=== PATIENT | female | born 1960 | race Caucasian/White ===

== ENCOUNTER → 2017-09-06 14:28 | Outpatient (CLI) | payer BC, SELFPAY ==
--- NOTE | 2017-09-06 14:28 | DT_ITS ---
This patient was seen during an EMR downtime September 06, 2017 - September 13, 2017. This patient may have a combination of paper and electronic documentation or all paper documentation. All documentation is viewable within the e-chart portion of [employer] for each patient visit.
[2017-09-10 22:43] LABS: Hemoglobin 14.3 g/dl (12.0-15.0); Red Blood Count 4.76 M/mm3 (4.2-5.4); White Blood Count 6.9 K/mm3 (4.4-11.0)
[2017-09-10 22:44] LABS: Absolute Lymphocyte Count 1.99 X10^3/ul (0.83-4.51); Absolute Neutrophil Count 4.2 X10^3/uL (2.0-7.7); Basophil% 0.6 % (0-1); Eosinophils% 3.3 % (0-5); Hematocrit 42.7 % (37-47); Lymphocyte # 1.99 X10^3/ul (4.0); Lymphocyte % 28.8 % (19-41); Mean Corp Hgb Conc 33.5 g/gl (32-36); Mean Corpuscular Volume 89.7 fL (81-99); Mean Platelet Vol. 10.4 fl (6.2-12.0); Monocyte% 6.7 % (0-10); Neutrophil # 4.17 X10^3/uL (2.7-7.7); Neutrophil % 60.3 % (47-70); POSITIVE COUNT NO; POSITIVE DIFFERENTIAL NO; POSITIVE MORPHOLOGY NO; Platelet Count 236 K/mm3 (150-450); RBC Distribution Width CV 13.8 % (11.6-14.6)
[2017-09-10 22:45] LABS: Basophil# 0.04 X10^3/uL; Eosinophil# 0.23 X10^3/uL; Monocyte# 0.46 X10^3/uL
[2017-09-13 16:56] LABS: ALB/GLOB Ratio 1.3 RATIO (0.9-2.4); AST(SGOT) 30 U/L (15-37); Alanine Aminotransfer ALT/SGPT 40 U/L (13-56); Albumin, Serum 4.1 g/dL (3.2-5.0); Alkaline Phosphatase 79 U/L (45-117); Anion Gap 7 (5-15); BUN 10 mg/dL (7-18); BUN/Creat Ratio 15.4 RATIO (10-20); Calcium,Total 8.6 mg/dL (8.5-10.1); Chloride 108 mmol/L (98-107); Creatinine, Serum 0.65 mg/dL (0.55-1.02); EST Glomerular Filtration Rate 101 mL/min (>60); Est Glom Filt Rate - Afr Amer 122 mL/min (>60); Globulin 3.1 g/dL (2.2-4.2); Glucose 72 mg/dL (74-106); Potassium 4.1 mmol/L (3.5-5.1); Protein, Total 7.2 g/dL (6.4-8.2); Sodium Level 142 mmol/L (136-145)
== END ==
PROVIDERS: Family Provider Family Medicine; PCP Family Medicine; Visit Provider Internal Medicine Rheumatology
DX: M06.4 Inflammatory polyarthropathy (principal); M79.7 Fibromyalgia; M21.40 Flat foot [pes planus] (acquired), unspecified foot; I10 Essential (primary) hypertension; I25.10 Atherosclerotic heart disease of native coronary artery without angina pectoris; G43.909 Migraine, unspecified, not intractable, without status migrainosus; H40.9 Unspecified glaucoma; E78.5 Hyperlipidemia, unspecified; Z87.11 Personal history of peptic ulcer disease
CPT/HCPCS: 36415; 80053; 85025

== ENCOUNTER → 2018-01-31 11:34 | Outpatient (CLI) | payer BC, SELFPAY ==
[2018-01-31 13:50] LABS: Basophil# 0.02 X10^3/uL; Basophil% 0.4 % (0-1); Eosinophil# 0.16 X10^3/uL; Eosinophils% 3.2 % (0-5); Hematocrit 43.9 % (37-47); Hemoglobin 15.2 g/dl (12.0-15.0); Lymphocyte % 28.2 % (19-41); Mean Corp Hgb Conc 34.6 g/gl (32-36); Mean Corpuscular Hgb 30.8 pg (27.0-32.0); Mean Corpuscular Volume 88.9 fL (81-99); Mean Platelet Vol. 9.9 fl (6.2-12.0); Monocyte# 0.34 X10^3/uL; Monocyte% 6.9 % (0-10); Neutrophil # 3.03 X10^3/uL (2.7-7.7); Neutrophil % 61.1 % (47-70); Platelet Count 194 K/mm3 (150-450); RBC Distribution Width CV 13.5 % (11.6-14.6); RBC Distribution Width SD 43.5 fl (35.1-43.9); Red Blood Count 4.94 M/mm3 (4.2-5.4)
[2018-01-31 13:54] LABS: POSITIVE COUNT NO; POSITIVE DIFFERENTIAL NO; POSITIVE MORPHOLOGY NO
[2018-01-31 14:08] LABS: BUN 7 mg/dL (7-18); Creatinine, Serum 0.76 mg/dL (0.55-1.02); Glucose 140 mg/dL (74-106)
[2018-01-31 14:09] LABS: ALB/GLOB Ratio 1.1 RATIO (0.9-2.4); AST(SGOT) 34 U/L (15-37); Alanine Aminotransfer ALT/SGPT 60 U/L (13-56); Albumin, Serum 3.9 g/dL (3.2-5.0); Alkaline Phosphatase 85 U/L (45-117); Anion Gap 10 (5-15); BUN/Creat Ratio 9.2 RATIO (10-20); Calcium,Total 9.2 mg/dL (8.5-10.1); Chloride 104 mmol/L (98-107); EST Glomerular Filtration Rate 83 mL/min (>60); Est Glom Filt Rate - Afr Amer 101 mL/min (>60); Globulin 3.5 g/dL (2.2-4.2); Potassium 4.3 mmol/L (3.5-5.1); Protein, Total 7.4 g/dL (6.4-8.2); Sodium Level 141 mmol/L (136-145)
== END ==
PROVIDERS: Family Provider Family Medicine; PCP Family Medicine; Referring Provider Internal Medicine Rheumatology; Visit Provider Internal Medicine Rheumatology
DX: M06.4 Inflammatory polyarthropathy (principal); Z79.899 Other long term (current) drug therapy; M79.7 Fibromyalgia; M21.40 Flat foot [pes planus] (acquired), unspecified foot; I10 Essential (primary) hypertension; I25.10 Atherosclerotic heart disease of native coronary artery without angina pectoris; G43.909 Migraine, unspecified, not intractable, without status migrainosus; H40.9 Unspecified glaucoma; E78.5 Hyperlipidemia, unspecified; Z87.11 Personal history of peptic ulcer disease
CPT/HCPCS: 36415; 80053; 85025

== ENCOUNTER → 2018-07-14 10:08 | Outpatient (CLI) | payer OTHER, SELFPAY ==
[2018-07-14 12:26] LABS: Absolute Lymphocyte Count 1.42 X10^3/ul (0.83-4.51); Absolute Neutrophil Count 2.8 X10^3/uL (2.0-7.7); Basophil# 0.04 X10^3/uL; Basophil% 0.8 % (0-1); Eosinophil# 0.18 X10^3/uL; Eosinophils% 3.8 % (0-5); Hemoglobin 15.6 g/dl (12.0-15.0); Lymphocyte # 1.42 X10^3/ul (4.0); Lymphocyte % 29.6 % (19-41); Mean Corp Hgb Conc 34.7 g/gl (32-36); Mean Corpuscular Hgb 30.5 pg (27.0-32.0); Mean Corpuscular Volume 87.9 fL (81-99); Mean Platelet Vol. 10.2 fl (6.2-12.0); Monocyte# 0.39 X10^3/uL; Monocyte% 8.1 % (0-10); Neutrophil # 2.75 X10^3/uL (2.7-7.7); Neutrophil % 57.3 % (47-70); Platelet Count 224 K/mm3 (150-450); RBC Distribution Width CV 13.8 % (11.6-14.6); RBC Distribution Width SD 43.9 fl (35.1-43.9); Red Blood Count 5.12 M/mm3 (4.2-5.4); White Blood Count 4.8 K/mm3 (4.4-11.0)
[2018-07-14 12:30] LABS: POSITIVE COUNT NO; POSITIVE DIFFERENTIAL NO; POSITIVE MORPHOLOGY NO
[2018-07-14 12:59] LABS: ALB/GLOB Ratio 1.3 RATIO (0.9-2.4); AST(SGOT) 42 U/L (15-37); Alanine Aminotransfer ALT/SGPT 68 U/L (13-56); Albumin, Serum 4.2 g/dL (3.2-5.0); Alkaline Phosphatase 86 U/L (45-117); Anion Gap 8 (5-15); BUN 10 mg/dL (7-18); BUN/Creat Ratio 14.3 RATIO (10-20); Calcium,Total 9.4 mg/dL (8.5-10.1); Chloride 104 mmol/L (98-107); EST Glomerular Filtration Rate 92 mL/min (>60); Est Glom Filt Rate - Afr Amer 111 mL/min (>60); Globulin 3.3 g/dL (2.2-4.2); Glucose 113 mg/dL (74-106); Potassium 4.4 mmol/L (3.5-5.1); Protein, Total 7.5 g/dL (6.4-8.2); Sodium Level 140 mmol/L (136-145)
== END ==
LOC: MTLAB 10:11
PROVIDERS: Family Provider Family Medicine; PCP Family Medicine; Referring Provider Internal Medicine Rheumatology; Visit Provider Internal Medicine Rheumatology
DX: M06.4 Inflammatory polyarthropathy (principal); M21.40 Flat foot [pes planus] (acquired), unspecified foot; M79.7 Fibromyalgia; I25.10 Atherosclerotic heart disease of native coronary artery without angina pectoris; I10 Essential (primary) hypertension; E78.5 Hyperlipidemia, unspecified; G43.909 Migraine, unspecified, not intractable, without status migrainosus; H40.9 Unspecified glaucoma; Z79.899 Other long term (current) drug therapy; Z87.11 Personal history of peptic ulcer disease
CPT/HCPCS: 36415; 80053; 85025

== ENCOUNTER → 2018-12-27 10:40 | Outpatient (CLI) | payer OTHER, SELFPAY ==
[2018-12-27 12:27] LABS: Absolute Lymphocyte Count 1.61 X10^3/uL (0.83-4.51); Absolute Neutrophil Count 3.5 X10^3/uL (2.0-7.7); Basophil# 0.05 X10^3/uL; Basophil% 0.8 % (0-1); Eosinophils% 3.4 % (0-5); Hematocrit 46.1 % (37-47); Hemoglobin 15.9 g/dL (12.0-15.0); Lymphocyte # 1.61 X10^3/ul (4.0); Lymphocyte % 27.3 % (19-41); Mean Corp Hgb Conc 34.5 g/dL (32-36); Mean Corpuscular Hgb 30.6 pg (27.0-32.0); Mean Corpuscular Volume 88.7 fL (81-99); Mean Platelet Vol. 10.2 fl (6.2-12.0); Monocyte# 0.51 X10^3/uL; Monocyte% 8.7 % (0-10); NRBC Flagged by Analyzer 0 % (0-5); Neutrophil % 59.5 % (47-70); Platelet Count 213 K/mm3 (150-450); RBC Distribution Width CV 12.7 % (11.6-14.6); RBC Distribution Width SD 41.4 fl (35.1-43.9); White Blood Count 5.9 K/mm3 (4.4-11.0)
[2018-12-27 12:53] LABS: ALB/GLOB Ratio 1.2 RATIO (0.9-2.4); AST(SGOT) 42 U/L (15-37); Alanine Aminotransfer ALT/SGPT 55 U/L (13-56); Albumin, Serum 4.1 g/dL (3.2-5.0); Alkaline Phosphatase 87 U/L (45-117); Anion Gap 9 (5-15); BUN 12 mg/dL (7-18); BUN/Creat Ratio 10.3 RATIO (10-20); Calcium,Total 9.4 mg/dL (8.5-10.1); Chloride 101 mmol/L (98-107); Creatinine, Serum 1.16 mg/dL (0.55-1.02); EST Glomerular Filtration Rate 51 mL/min (>60); Est Glom Filt Rate - Afr Amer 62 mL/min (>60); Globulin 3.4 g/dL (2.2-4.2); Glucose 118 mg/dL (74-106); Potassium 4.2 mmol/L (3.5-5.1); Protein, Total 7.5 g/dL (6.4-8.2); Sodium Level 139 mmol/L (136-145)
== END ==
PROVIDERS: Family Provider Family Medicine; PCP Family Medicine; Referring Provider Internal Medicine Rheumatology; Visit Provider Internal Medicine Rheumatology
DX: M06.4 Inflammatory polyarthropathy (principal); Z79.899 Other long term (current) drug therapy; M79.7 Fibromyalgia; M21.40 Flat foot [pes planus] (acquired), unspecified foot; I10 Essential (primary) hypertension; I25.10 Atherosclerotic heart disease of native coronary artery without angina pectoris; G43.909 Migraine, unspecified, not intractable, without status migrainosus; H40.9 Unspecified glaucoma; E78.5 Hyperlipidemia, unspecified; Z87.11 Personal history of peptic ulcer disease
CPT/HCPCS: 36415; 80053; 85025

== ENCOUNTER → 2019-03-09 11:31 | Outpatient (CLI) | payer OTHER, SELFPAY ==
[2019-03-09 14:10] LABS: Absolute Lymphocyte Count 1.42 X10^3/uL (0.83-4.51); Absolute Neutrophil Count 3.3 X10^3/uL (2.0-7.7); Basophil# 0.05 X10^3/uL; Basophil% 0.9 % (0-1); Eosinophil# 0.16 X10^3/uL; Hematocrit 48.4 % (37-47); Hemoglobin 16.6 g/dL (12.0-15.0); Lymphocyte # 1.42 X10^3/ul (4.0); Lymphocyte % 26.8 % (19-41); Mean Corp Hgb Conc 34.3 g/dL (32-36); Mean Corpuscular Hgb 30.4 pg (27.0-32.0); Mean Corpuscular Volume 88.6 fL (81-99); Mean Platelet Vol. 10.1 fl (6.2-12.0); Monocyte# 0.39 X10^3/uL; Monocyte% 7.4 % (0-10); NRBC Flagged by Analyzer 0 % (0-5); Neutrophil # 3.26 X10^3/uL (2.7-7.7); Neutrophil % 61.5 % (47-70); Platelet Count 224 K/mm3 (150-450); RBC Distribution Width CV 13.2 % (11.6-14.6); RBC Distribution Width SD 42.7 fl (35.1-43.9); Red Blood Count 5.46 M/mm3 (4.2-5.4); White Blood Count 5.3 K/mm3 (4.4-11.0)
[2019-03-09 14:25] LABS: ALB/GLOB Ratio 1.4 RATIO (0.9-2.4); AST(SGOT) 33 U/L (15-37); Alanine Aminotransfer ALT/SGPT 54 U/L (13-56); Albumin, Serum 4.6 g/dL (3.2-5.0); Alkaline Phosphatase 80 U/L (45-117); Anion Gap 5 (5-15); BUN 13 mg/dL (7-18); Chloride 103 mmol/L (98-107); Creatinine, Serum 0.81 mg/dL (0.55-1.02); EST Glomerular Filtration Rate 77 mL/min (>60); Est Glom Filt Rate - Afr Amer 94 mL/min (>60); Globulin 3.4 g/dL (2.2-4.2); Glucose 94 mg/dL (74-106); Potassium 4.2 mmol/L (3.5-5.1); Sodium Level 138 mmol/L (136-145)
== END ==
PROVIDERS: Family Provider Family Medicine; PCP Family Medicine; Referring Provider Internal Medicine Rheumatology; Visit Provider Internal Medicine Rheumatology
DX: M06.4 Inflammatory polyarthropathy (principal); Z79.899 Other long term (current) drug therapy; M79.7 Fibromyalgia; M21.40 Flat foot [pes planus] (acquired), unspecified foot; I10 Essential (primary) hypertension; I25.10 Atherosclerotic heart disease of native coronary artery without angina pectoris; G43.909 Migraine, unspecified, not intractable, without status migrainosus; H40.9 Unspecified glaucoma; E78.5 Hyperlipidemia, unspecified; Z87.11 Personal history of peptic ulcer disease
CPT/HCPCS: 36415; 80053; 85025

== ENCOUNTER → 2019-05-25 11:47 | Outpatient (CLI) | payer OTHER, SELFPAY ==
[2019-05-25 14:24] LABS: Absolute Lymphocyte Count 1.34 X10^3/uL (0.83-4.51); Absolute Neutrophil Count 3.2 X10^3/uL (2.0-7.7); Basophil# 0.05 X10^3/uL; Eosinophil# 0.19 X10^3/uL; Eosinophils% 3.7 % (0-5); Hemoglobin 15.4 g/dL (12.0-15.0); Lymphocyte # 1.34 X10^3/ul (4.0); Lymphocyte % 26.3 % (19-41); Mean Corp Hgb Conc 33.5 g/dL (32-36); Mean Corpuscular Hgb 29.6 pg (27.0-32.0); Mean Corpuscular Volume 88.3 fL (81-99); Mean Platelet Vol. 10.5 fl (6.2-12.0); Monocyte% 5.9 % (0-10); NRBC Flagged by Analyzer 0 % (0-5); Neutrophil # 3.21 X10^3/uL (2.7-7.7); Neutrophil % 62.9 % (47-70); Platelet Count 219 K/mm3 (150-450); RBC Distribution Width CV 12.9 % (11.6-14.6); RBC Distribution Width SD 41.8 fl (35.1-43.9); Red Blood Count 5.21 M/mm3 (4.2-5.4); White Blood Count 5.1 K/mm3 (4.4-11.0)
[2019-05-25 14:35] LABS: ALB/GLOB Ratio 1.2 RATIO (0.9-2.4); AST(SGOT) 26 U/L (15-37); Alanine Aminotransfer ALT/SGPT 49 U/L (13-56); Albumin, Serum 4.2 g/dL (3.2-5.0); Alkaline Phosphatase 83 U/L (45-117); Anion Gap 7 (5-15); BUN 7 mg/dL (7-18); BUN/Creat Ratio 9.5 RATIO (10-20); Calcium,Total 9.4 mg/dL (8.5-10.1); Chloride 104 mmol/L (98-107); Creatinine, Serum 0.74 mg/dL (0.55-1.02); EST Glomerular Filtration Rate 87 mL/min (>60); Est Glom Filt Rate - Afr Amer 105 mL/min (>60); Globulin 3.5 g/dL (2.2-4.2); Glucose 120 mg/dL (74-106); Potassium 3.8 mmol/L (3.5-5.1); Protein, Total 7.7 g/dL (6.4-8.2); Sodium Level 140 mmol/L (136-145)
== END ==
PROVIDERS: PCP Family Medicine; Referring Provider Internal Medicine Rheumatology; Visit Provider Internal Medicine Rheumatology
DX: M06.4 Inflammatory polyarthropathy (principal); Z79.899 Other long term (current) drug therapy; M79.7 Fibromyalgia; M21.40 Flat foot [pes planus] (acquired), unspecified foot; K76.0 Fatty (change of) liver, not elsewhere classified; I10 Essential (primary) hypertension; I25.10 Atherosclerotic heart disease of native coronary artery without angina pectoris; G43.909 Migraine, unspecified, not intractable, without status migrainosus; H40.9 Unspecified glaucoma; E78.5 Hyperlipidemia, unspecified; Z87.11 Personal history of peptic ulcer disease
CPT/HCPCS: 36415; 80053; 85025

== ENCOUNTER → 2019-09-08 13:39 | Outpatient (CLI) | payer OTHER, SELFPAY ==
[2019-09-08 15:55] LABS: Absolute Lymphocyte Count 1.37 X10^3/uL (0.83-4.51); Absolute Neutrophil Count 2.8 X10^3/uL (2.0-7.7); Basophil# 0.04 X10^3/uL; Basophil% 0.8 % (0-1); Eosinophil# 0.13 X10^3/uL; Eosinophils% 2.8 % (0-5); Hematocrit 48.6 % (37-47); Hemoglobin 16.2 g/dL (12.0-15.0); Lymphocyte # 1.37 X10^3/ul (4.0); Mean Corp Hgb Conc 33.3 g/dL (32-36); Mean Corpuscular Hgb 30.3 pg (27.0-32.0); Mean Platelet Vol. 10.7 fl (6.2-12.0); Monocyte# 0.36 X10^3/uL; Monocyte% 7.6 % (0-10); NRBC Flagged by Analyzer 0 % (0-5); Neutrophil # 2.81 X10^3/uL (2.7-7.7); Neutrophil % 59.6 % (47-70); Platelet Count 238 K/mm3 (150-450); RBC Distribution Width CV 12.8 % (11.6-14.6); RBC Distribution Width SD 42.2 fl (35.1-43.9); Red Blood Count 5.34 M/mm3 (4.2-5.4); White Blood Count 4.7 K/mm3 (4.4-11.0)
[2019-09-08 16:38] LABS: ALB/GLOB Ratio 1.2 RATIO (0.9-2.4); AST(SGOT) 41 U/L (15-37); Alanine Aminotransfer ALT/SGPT 61 U/L (13-56); Albumin, Serum 4.3 g/dL (3.2-5.0); Alkaline Phosphatase 82 U/L (45-117); Anion Gap 7 (5-15); BUN 12 mg/dL (7-18); BUN/Creat Ratio 14.4 RATIO (10-20); Calcium,Total 9.9 mg/dL (8.5-10.1); Chloride 103 mmol/L (98-107); Creatinine, Serum 0.83 mg/dL (0.55-1.02); EST Glomerular Filtration Rate 75 mL/min (>60); Est Glom Filt Rate - Afr Amer 91 mL/min (>60); Globulin 3.5 g/dL (2.2-4.2); Glucose 100 mg/dL (74-106); Potassium 3.8 mmol/L (3.5-5.1); Protein, Total 7.8 g/dL (6.4-8.2); Sodium Level 139 mmol/L (136-145)
== END ==
PROVIDERS: PCP Family Medicine; Referring Provider Internal Medicine Rheumatology; Visit Provider Internal Medicine Rheumatology
DX: M06.4 Inflammatory polyarthropathy (principal); Z79.899 Other long term (current) drug therapy; M79.7 Fibromyalgia; M21.40 Flat foot [pes planus] (acquired), unspecified foot; K76.0 Fatty (change of) liver, not elsewhere classified; I10 Essential (primary) hypertension; I25.10 Atherosclerotic heart disease of native coronary artery without angina pectoris; G43.909 Migraine, unspecified, not intractable, without status migrainosus; H40.9 Unspecified glaucoma; E78.5 Hyperlipidemia, unspecified; Z87.11 Personal history of peptic ulcer disease
CPT/HCPCS: 36415; 80053; 85025

== ENCOUNTER → 2019-11-09 13:20 | Outpatient (CLI) | payer OTHER, SELFPAY ==
[2019-11-09 15:34] LABS: Absolute Lymphocyte Count 1.63 X10^3/uL (0.83-4.51); Absolute Neutrophil Count 3.1 X10^3/uL (2.0-7.7); Basophil# 0.06 X10^3/uL; Basophil% 1.1 % (0-1); Eosinophil# 0.17 X10^3/uL; Eosinophils% 3.1 % (0-5); Hematocrit 47.1 % (37-47); Lymphocyte # 1.63 X10^3/ul (4.0); Lymphocyte % 30.1 % (19-41); Mean Corpuscular Hgb 30.5 pg (27.0-32.0); Mean Corpuscular Volume 89.7 fL (81-99); Mean Platelet Vol. 10.3 fl (6.2-12.0); Monocyte# 0.41 X10^3/uL; Monocyte% 7.6 % (0-10); NRBC Flagged by Analyzer 0 % (0-5); Neutrophil # 3.12 X10^3/uL (2.7-7.7); Neutrophil % 57.7 % (47-70); Platelet Count 221 K/mm3 (150-450); RBC Distribution Width CV 13.1 % (11.6-14.6); RBC Distribution Width SD 42.7 fl (35.1-43.9); Red Blood Count 5.25 M/mm3 (4.2-5.4); White Blood Count 5.4 K/mm3 (4.4-11.0)
[2019-11-09 15:45] LABS: ALB/GLOB Ratio 1.2 RATIO (0.9-2.4); AST(SGOT) 30 U/L (15-37); Alanine Aminotransfer ALT/SGPT 52 U/L (13-56); Albumin, Serum 4.3 g/dL (3.2-5.0); Alkaline Phosphatase 81 U/L (45-117); Anion Gap 4 (5-15); BUN 11 mg/dL (7-18); BUN/Creat Ratio 13.1 RATIO (10-20); Calcium,Total 9.5 mg/dL (8.5-10.1); Chloride 104 mmol/L (98-107); Creatinine, Serum 0.84 mg/dL (0.55-1.02); EST Glomerular Filtration Rate 74 mL/min (>60); Est Glom Filt Rate - Afr Amer 90 mL/min (>60); Globulin 3.6 g/dL (2.2-4.2); Glucose 94 mg/dL (74-106); Potassium 4.3 mmol/L (3.5-5.1); Protein, Total 7.9 g/dL (6.4-8.2); Sodium Level 139 mmol/L (136-145)
== END ==
PROVIDERS: PCP Family Medicine; Referring Provider Internal Medicine Rheumatology; Visit Provider Internal Medicine Rheumatology
DX: M06.4 Inflammatory polyarthropathy (principal); Z79.899 Other long term (current) drug therapy; M79.7 Fibromyalgia; M21.40 Flat foot [pes planus] (acquired), unspecified foot; K76.0 Fatty (change of) liver, not elsewhere classified; I10 Essential (primary) hypertension; I25.10 Atherosclerotic heart disease of native coronary artery without angina pectoris; G43.909 Migraine, unspecified, not intractable, without status migrainosus; H40.9 Unspecified glaucoma; E78.5 Hyperlipidemia, unspecified; Z87.11 Personal history of peptic ulcer disease
CPT/HCPCS: 36415; 80053; 85025

== ENCOUNTER → 2020-01-01 13:57 | Outpatient (CLI) | payer OTHER, SELFPAY ==
[2020-01-01 18:06] LABS: Absolute Neutrophil Count 3.5 X10^3/uL (2.0-7.7); Basophil# 0.05 X10^3/uL; Basophil% 0.9 % (0-1); Eosinophil# 0.16 X10^3/uL; Eosinophils% 2.9 % (0-5); Hematocrit 47.5 % (37-47); Hemoglobin 16.1 g/dL (12.0-15.0); Lymphocyte % 27.5 % (19-41); Mean Corp Hgb Conc 33.9 g/dL (32-36); Mean Corpuscular Hgb 30.4 pg (27.0-32.0); Mean Corpuscular Volume 89.6 fL (81-99); Mean Platelet Vol. 10.5 fl (6.2-12.0); Monocyte# 0.27 X10^3/uL; NRBC Flagged by Analyzer 0 % (0-5); Neutrophil # 3.46 X10^3/uL (2.7-7.7); Neutrophil % 63.5 % (47-70); Platelet Count 217 K/mm3 (150-450); RBC Distribution Width CV 12.4 % (11.6-14.6); RBC Distribution Width SD 40.3 fl (35.1-43.9); White Blood Count 5.5 K/mm3 (4.4-11.0)
[2020-01-01 18:25] LABS: ALB/GLOB Ratio 1.2 RATIO (0.9-2.4); AST(SGOT) 30 U/L (15-37); Alanine Aminotransfer ALT/SGPT 46 U/L (13-56); Albumin, Serum 4.3 g/dL (3.2-5.0); Alkaline Phosphatase 91 U/L (45-117); Anion Gap 6 (5-15); BUN 11 mg/dL (7-18); BUN/Creat Ratio 13.8 RATIO (10-20); Calcium,Total 9.6 mg/dL (8.5-10.1); Chloride 104 mmol/L (98-107); EST Glomerular Filtration Rate 79 mL/min (>60); Est Glom Filt Rate - Afr Amer 95 mL/min (>60); Globulin 3.7 g/dL (2.2-4.2); Glucose 113 mg/dL (74-106); Potassium 3.8 mmol/L (3.5-5.1); Sodium Level 136 mmol/L (136-145)
== END ==
PROVIDERS: PCP Family Medicine; Referring Provider Internal Medicine Rheumatology; Visit Provider Internal Medicine Rheumatology
DX: M06.4 Inflammatory polyarthropathy (principal); Z79.899 Other long term (current) drug therapy; M79.7 Fibromyalgia; M21.40 Flat foot [pes planus] (acquired), unspecified foot; K76.0 Fatty (change of) liver, not elsewhere classified; I10 Essential (primary) hypertension; I25.10 Atherosclerotic heart disease of native coronary artery without angina pectoris; G43.909 Migraine, unspecified, not intractable, without status migrainosus; H40.9 Unspecified glaucoma; E78.5 Hyperlipidemia, unspecified; Z87.11 Personal history of peptic ulcer disease
CPT/HCPCS: 36415; 80053; 85025

== ENCOUNTER → 2020-04-02 14:41 | Outpatient (CLI) | payer OTHER, SELFPAY ==
[2020-04-02 18:08] LABS: Absolute Lymphocyte Count 1.52 X10^3/uL (0.83-4.51); Absolute Neutrophil Count 3.6 X10^3/uL (2.0-7.7); Basophil# 0.06 X10^3/uL; Basophil% 1.1 % (0-1); Eosinophil# 0.19 X10^3/uL; Eosinophils% 3.3 % (0-5); Hematocrit 46.4 % (37-47); Hemoglobin 15.6 g/dL (12.0-15.0); Lymphocyte # 1.52 X10^3/ul (4.0); Lymphocyte % 26.6 % (19-41); Mean Corp Hgb Conc 33.6 g/dL (32-36); Mean Corpuscular Hgb 31.1 pg (27.0-32.0); Mean Corpuscular Volume 92.4 fL (81-99); Mean Platelet Vol. 10.3 fl (6.2-12.0); Monocyte# 0.37 X10^3/uL; Monocyte% 6.5 % (0-10); NRBC Flagged by Analyzer 0 % (0-5); Neutrophil # 3.55 X10^3/uL (2.7-7.7); Neutrophil % 62.1 % (47-70); Platelet Count 251 K/mm3 (150-450); RBC Distribution Width CV 13.8 % (11.6-14.6); RBC Distribution Width SD 45.7 fl (35.1-43.9); Red Blood Count 5.02 M/mm3 (4.2-5.4); White Blood Count 5.7 K/mm3 (4.4-11.0)
[2020-04-02 18:28] LABS: ALB/GLOB Ratio 1.3 RATIO (0.9-2.4); AST(SGOT) 51 U/L (15-37); Alanine Aminotransfer ALT/SGPT 74 U/L (13-56); Albumin, Serum 4.3 g/dL (3.2-5.0); Alkaline Phosphatase 88 U/L (45-117); Anion Gap 5 (5-15); BUN 9 mg/dL (7-18); BUN/Creat Ratio 12.2 RATIO (10-20); Calcium,Total 9.1 mg/dL (8.5-10.1); Chloride 104 mmol/L (98-107); Creatinine, Serum 0.74 mg/dL (0.55-1.02); EST Glomerular Filtration Rate 86 mL/min (>60); Est Glom Filt Rate - Afr Amer 104 mL/min (>60); Globulin 3.4 g/dL (2.2-4.2); Glucose 91 mg/dL (74-106); Potassium 4.3 mmol/L (3.5-5.1); Protein, Total 7.7 g/dL (6.4-8.2); Sodium Level 138 mmol/L (136-145)
== END ==
LOC: MTLAB 14:43
PROVIDERS: PCP Family Medicine; Referring Provider Internal Medicine Rheumatology; Visit Provider Internal Medicine Rheumatology
DX: M06.4 Inflammatory polyarthropathy (principal); Z79.899 Other long term (current) drug therapy; M79.7 Fibromyalgia; M21.40 Flat foot [pes planus] (acquired), unspecified foot; K76.0 Fatty (change of) liver, not elsewhere classified; I10 Essential (primary) hypertension; I25.10 Atherosclerotic heart disease of native coronary artery without angina pectoris; G43.909 Migraine, unspecified, not intractable, without status migrainosus; H40.9 Unspecified glaucoma; E78.5 Hyperlipidemia, unspecified; Z87.11 Personal history of peptic ulcer disease
CPT/HCPCS: 36415; 80053; 85025

== ENCOUNTER → 2020-06-13 16:06 | Outpatient (CLI) | payer OTHER, SELFPAY ==
[2020-06-13 17:26] LABS: Absolute Lymphocyte Count 1.85 X10^3/uL (0.83-4.51); Absolute Neutrophil Count 3.6 X10^3/uL (2.0-7.7); Basophil# 0.06 X10^3/uL; Eosinophil# 0.17 X10^3/uL; Eosinophils% 2.8 % (0-5); Hematocrit 47.4 % (37-47); Hemoglobin 16.2 g/dL (12.0-15.0); Lymphocyte # 1.85 X10^3/ul (4.0); Lymphocyte % 30.1 % (19-41); Mean Corp Hgb Conc 34.2 g/dL (32-36); Mean Corpuscular Volume 90.6 fL (81-99); Mean Platelet Vol. 10.2 fl (6.2-12.0); Monocyte# 0.45 X10^3/uL; Monocyte% 7.3 % (0-10); NRBC Flagged by Analyzer 0 % (0-5); Neutrophil % 58.5 % (47-70); Platelet Count 285 K/mm3 (150-450); RBC Distribution Width CV 12.3 % (11.6-14.6); RBC Distribution Width SD 40.6 fl (35.1-43.9); Red Blood Count 5.23 M/mm3 (4.2-5.4); White Blood Count 6.2 K/mm3 (4.4-11.0)
[2020-06-13 18:09] LABS: ALB/GLOB Ratio 1.3 RATIO (0.9-2.4); AST(SGOT) 60 U/L (15-37); Alanine Aminotransfer ALT/SGPT 85 U/L (13-56); Albumin, Serum 4.4 g/dL (3.2-5.0); Alkaline Phosphatase 93 U/L (45-117); Anion Gap 5 (5-15); BUN 10 mg/dL (7-18); BUN/Creat Ratio 10.8 RATIO (10-20); Calcium,Total 9.7 mg/dL (8.5-10.1); Chloride 100 mmol/L (98-107); Creatinine, Serum 0.93 mg/dL (0.55-1.02); EST Glomerular Filtration Rate 66 mL/min (>60); Est Glom Filt Rate - Afr Amer 80 mL/min (>60); Globulin 3.4 g/dL (2.2-4.2); Glucose 92 mg/dL (74-106); Potassium 4.1 mmol/L (3.5-5.1); Protein, Total 7.8 g/dL (6.4-8.2); Sodium Level 137 mmol/L (136-145)
== END ==
PROVIDERS: PCP Family Medicine; Referring Provider Internal Medicine Rheumatology; Visit Provider Internal Medicine Rheumatology
DX: M06.4 Inflammatory polyarthropathy (principal); Z79.899 Other long term (current) drug therapy; M79.7 Fibromyalgia; M21.40 Flat foot [pes planus] (acquired), unspecified foot; K76.0 Fatty (change of) liver, not elsewhere classified; I10 Essential (primary) hypertension; I25.10 Atherosclerotic heart disease of native coronary artery without angina pectoris; G43.909 Migraine, unspecified, not intractable, without status migrainosus; H40.9 Unspecified glaucoma; E78.5 Hyperlipidemia, unspecified; Z87.11 Personal history of peptic ulcer disease
CPT/HCPCS: 36415; 80053; 85025

== ENCOUNTER → 2020-09-09 13:23 | Outpatient (CLI) | payer OTHER, SELFPAY ==
[2020-09-09 15:41] LABS: Absolute Lymphocyte Count 1.46 X10^3/uL (0.83-4.51); Absolute Neutrophil Count 2.6 X10^3/uL (2.0-7.7); Basophil# 0.04 X10^3/uL; Basophil% 0.9 % (0-1); Eosinophil# 0.12 X10^3/uL; Eosinophils% 2.6 % (0-5); Hematocrit 45.9 % (37-47); Hemoglobin 15.6 g/dL (12.0-15.0); Lymphocyte # 1.46 X10^3/ul (0.83-4.51); Lymphocyte % 31.8 % (19-41); Mean Corpuscular Hgb 30.3 pg (27.0-32.0); Mean Corpuscular Volume 89.1 fL (81-99); Mean Platelet Vol. 10.8 fl (6.2-12.0); Monocyte# 0.32 X10^3/uL; NRBC Flagged by Analyzer 0 % (0-5); Neutrophil # 2.63 X10^3/uL (2.7-7.7); Neutrophil % 57.3 % (47-70); Platelet Count 207 K/mm3 (150-450); RBC Distribution Width SD 42.1 fl (35.1-43.9); Red Blood Count 5.15 M/mm3 (4.2-5.4); White Blood Count 4.6 K/mm3 (4.4-11.0)
[2020-09-09 16:09] LABS: ALB/GLOB Ratio 1.3 RATIO (0.9-2.4); AST(SGOT) 35 U/L (15-37); Alanine Aminotransfer ALT/SGPT 60 U/L (13-56); Albumin, Serum 4.3 g/dL (3.2-5.0); Alkaline Phosphatase 86 U/L (45-117); Anion Gap 7 (5-15); BUN 11 mg/dL (7-18); BUN/Creat Ratio 13.9 RATIO (10-20); Calcium,Total 9.6 mg/dL (8.5-10.1); Chloride 103 mmol/L (98-107); Creatinine, Serum 0.79 mg/dL (0.55-1.02); EST Glomerular Filtration Rate 80 mL/min (>60); Est Glom Filt Rate - Afr Amer 96 mL/min (>60); Globulin 3.4 g/dL (2.2-4.2); Glucose 88 mg/dL (74-106); Potassium 4.5 mmol/L (3.5-5.1); Protein, Total 7.7 g/dL (6.4-8.2); Sodium Level 137 mmol/L (136-145)
== END ==
PROVIDERS: PCP Family Medicine; Referring Provider Internal Medicine Rheumatology; Visit Provider Internal Medicine Rheumatology
DX: M06.4 Inflammatory polyarthropathy (principal); Z79.899 Other long term (current) drug therapy; M79.7 Fibromyalgia; M21.40 Flat foot [pes planus] (acquired), unspecified foot; K76.0 Fatty (change of) liver, not elsewhere classified; I10 Essential (primary) hypertension; I25.10 Atherosclerotic heart disease of native coronary artery without angina pectoris; G43.909 Migraine, unspecified, not intractable, without status migrainosus; H40.9 Unspecified glaucoma; E78.5 Hyperlipidemia, unspecified; Z87.11 Personal history of peptic ulcer disease
CPT/HCPCS: 36415; 80053; 85025

== ENCOUNTER → 2020-12-12 16:36 | Outpatient (CLI) | payer OTHER, SELFPAY ==
[2020-12-12 18:26] LABS: Absolute Lymphocyte Count 1.74 X10^3/uL (0.83-4.51); Absolute Neutrophil Count 3.5 X10^3/uL (2.0-7.7); Basophil# 0.03 X10^3/uL; Basophil% 0.5 % (0-1); Eosinophil# 0.14 X10^3/uL; Eosinophils% 2.4 % (0-5); Hematocrit 45.4 % (37-47); Hemoglobin 15.2 g/dL (12.0-15.0); Lymphocyte # 1.74 X10^3/ul (0.83-4.51); Lymphocyte % 30.4 % (19-41); Mean Corp Hgb Conc 33.5 g/dL (32-36); Mean Corpuscular Volume 89.7 fL (81-99); Mean Platelet Vol. 10.2 fl (6.2-12.0); Monocyte# 0.36 X10^3/uL; Monocyte% 6.3 % (0-10); NRBC Flagged by Analyzer 0 % (0-5); Neutrophil # 3.45 X10^3/uL (2.7-7.7); Neutrophil % 60.2 % (47-70); Platelet Count 240 K/mm3 (150-450); RBC Distribution Width CV 13.1 % (11.6-14.6); RBC Distribution Width SD 42.7 fl (35.1-43.9); Red Blood Count 5.06 M/mm3 (4.2-5.4); White Blood Count 5.7 K/mm3 (4.4-11.0)
[2020-12-12 19:01] LABS: ALB/GLOB Ratio 1.1 RATIO (0.9-2.4); AST(SGOT) 23 U/L (15-37); Alanine Aminotransfer ALT/SGPT 36 U/L (13-56); Albumin, Serum 3.9 g/dL (3.2-5.0); Alkaline Phosphatase 76 U/L (45-117); Anion Gap 4 (5-15); BUN 13 mg/dL (7-18); BUN/Creat Ratio 19.6 RATIO (10-20); Calcium,Total 9.2 mg/dL (8.5-10.1); Chloride 104 mmol/L (98-107); Creatinine, Serum 0.66 mg/dL (0.55-1.02); EST Glomerular Filtration Rate 97 mL/min (>60); Est Glom Filt Rate - Afr Amer 118 mL/min (>60); Globulin 3.6 g/dL (2.2-4.2); Glucose 110 mg/dL (74-106); Potassium 4.1 mmol/L (3.5-5.1); Protein, Total 7.5 g/dL (6.4-8.2); Sodium Level 139 mmol/L (136-145)
== END ==
PROVIDERS: PCP Family Medicine; Referring Provider Internal Medicine Rheumatology; Visit Provider Internal Medicine Rheumatology
DX: M06.4 Inflammatory polyarthropathy (principal); Z79.899 Other long term (current) drug therapy; M79.7 Fibromyalgia; M21.40 Flat foot [pes planus] (acquired), unspecified foot; K76.0 Fatty (change of) liver, not elsewhere classified; I10 Essential (primary) hypertension; I25.10 Atherosclerotic heart disease of native coronary artery without angina pectoris; G43.909 Migraine, unspecified, not intractable, without status migrainosus; H40.9 Unspecified glaucoma; E78.5 Hyperlipidemia, unspecified; Z87.11 Personal history of peptic ulcer disease
CPT/HCPCS: 36415; 80053; 85025

== ENCOUNTER 2021-06-27 13:57 | Outpatient (CLI) | payer OTHER, SELFPAY ==
[2021-06-27 15:34] LABS: Absolute Lymphocyte Count 1.63 X10^3/uL (0.83-4.51); Absolute Neutrophil Count 6.6 X10^3/uL (2.0-7.7); Basophil# 0.06 X10^3/uL; Basophil% 0.7 % (0-1); Eosinophil# 0.13 X10^3/uL; Eosinophils% 1.4 % (0-5); Hematocrit 48.2 % (37-47); Hemoglobin 16.6 g/dL (12.0-15.0); Lymphocyte # 1.63 X10^3/ul (0.83-4.51); Lymphocyte % 17.9 % (19-41); Mean Corp Hgb Conc 34.4 g/dL (32-36); Mean Corpuscular Hgb 30.1 pg (27.0-32.0); Mean Corpuscular Volume 87.5 fL (81-99); Mean Platelet Vol. 10.7 fl (6.2-12.0); Monocyte# 0.64 X10^3/uL; NRBC Flagged by Analyzer 0 % (0-5); Neutrophil # 6.61 X10^3/uL (2.7-7.7); Neutrophil % 72.8 % (47-70); POSITIVE COUNT YES; Platelet Count 213 K/mm3 (150-450); RBC Distribution Width SD 41.8 fl (35.1-43.9); Red Blood Count 5.51 M/mm3 (4.2-5.4); White Blood Count 9.1 K/mm3 (4.4-11.0)
[2021-06-27 15:45] LABS: Differential Indicated SCAN CRITERIA MET
[2021-06-27 15:46] LABS: ALB/GLOB Ratio 1.2 RATIO (0.9-2.4); AST(SGOT) 41 U/L (15-37); Alanine Aminotransfer ALT/SGPT 62 U/L (13-56); Albumin, Serum 4.2 g/dL (3.2-5.0); Alkaline Phosphatase 79 U/L (45-117); Anion Gap 7 (5-15); BUN 12 mg/dL (7-18); Calcium,Total 9.6 mg/dL (8.5-10.1); Chloride 103 mmol/L (98-107); Creatinine, Serum 0.86 mg/dL (0.55-1.02); EST Glomerular Filtration Rate 72 mL/min (>60); Est Glom Filt Rate - Afr Amer 87 mL/min (>60); Globulin 3.6 g/dL (2.2-4.2); Glucose 97 mg/dL (74-106); Protein, Total 7.8 g/dL (6.4-8.2); Sodium Level 136 mmol/L (136-145)
[2021-06-27 16:24] LABS: Differential Comment SCANNED
== END 2021-06-27 23:59 | disposition home or self-care (01) ==
PROVIDERS: PCP Family Medicine; Referring Provider Internal Medicine Rheumatology; Visit Provider Internal Medicine Rheumatology
DX: M06.4 Inflammatory polyarthropathy (principal); Z79.899 Other long term (current) drug therapy; M79.7 Fibromyalgia; M21.40 Flat foot [pes planus] (acquired), unspecified foot; K76.0 Fatty (change of) liver, not elsewhere classified; I10 Essential (primary) hypertension; I25.10 Atherosclerotic heart disease of native coronary artery without angina pectoris; G43.909 Migraine, unspecified, not intractable, without status migrainosus; H40.9 Unspecified glaucoma; E78.5 Hyperlipidemia, unspecified; Z87.11 Personal history of peptic ulcer disease
CPT/HCPCS: 36415; 80053; 85025

== ENCOUNTER → 2021-10-14 | Outpatient (CLI) | payer OTHER, SELFPAY ==
[2021-10-14 17:59] LABS: Absolute Lymphocyte Count 1.83 X10^3/uL (0.83-4.51); Absolute Neutrophil Count 4.7 X10^3/uL (2.0-7.7); Basophil# 0.06 X10^3/uL; Basophil% 0.8 % (0-1); Eosinophils% 1.4 % (0-5); Hemoglobin 16.8 g/dL (12.0-15.0); Lymphocyte # 1.83 X10^3/ul (0.83-4.51); Lymphocyte % 24.9 % (19-41); Mean Corpuscular Hgb 30.7 pg (27.0-32.0); Mean Corpuscular Volume 87.6 fL (81-99); Mean Platelet Vol. 10.1 fl (6.2-12.0); Monocyte# 0.58 X10^3/uL; Monocyte% 7.9 % (0-10); NRBC Flagged by Analyzer 0 % (0-5); Neutrophil # 4.74 X10^3/uL (2.7-7.7); Neutrophil % 64.6 % (47-70); Platelet Count 271 K/mm3 (150-450); RBC Distribution Width CV 12.9 % (11.6-14.6); RBC Distribution Width SD 41.6 fl (35.1-43.9); Red Blood Count 5.48 M/mm3 (4.2-5.4); White Blood Count 7.3 K/mm3 (4.4-11.0)
[2021-10-14 18:37] LABS: ALB/GLOB Ratio 1.1 RATIO (0.9-2.4); AST(SGOT) 62 U/L (15-37); Alanine Aminotransfer ALT/SGPT 89 U/L (13-56); Albumin, Serum 4.1 g/dL (3.2-5.0); Alkaline Phosphatase 84 U/L (45-117); Anion Gap 6 (5-15); BUN 15 mg/dL (7-18); BUN/Creat Ratio 16.3 RATIO (10-20); Calcium,Total 9.4 mg/dL (8.5-10.1); Chloride 101 mmol/L (98-107); Creatinine, Serum 0.92 mg/dL (0.55-1.02); EST Glomerular Filtration Rate 67 mL/min (>60); Est Glom Filt Rate - Afr Amer 81 mL/min (>60); Globulin 3.7 g/dL (2.2-4.2); Glucose 109 mg/dL (74-106); Protein, Total 7.8 g/dL (6.4-8.2); Sodium Level 135 mmol/L (136-145)
== END | disposition home or self-care (01) ==
LOC: MTLAB 15:49
PROVIDERS: PCP Family Medicine; Referring Provider Internal Medicine Rheumatology; Visit Provider Internal Medicine Rheumatology
DX: M06.4 Inflammatory polyarthropathy (principal); Z79.899 Other long term (current) drug therapy; M79.7 Fibromyalgia; M21.40 Flat foot [pes planus] (acquired), unspecified foot; K76.0 Fatty (change of) liver, not elsewhere classified; I10 Essential (primary) hypertension; I25.10 Atherosclerotic heart disease of native coronary artery without angina pectoris; G43.909 Migraine, unspecified, not intractable, without status migrainosus; H40.9 Unspecified glaucoma; E78.5 Hyperlipidemia, unspecified; Z87.11 Personal history of peptic ulcer disease
CPT/HCPCS: 36415; 80053; 85025

== ENCOUNTER → 2022-02-17 | Outpatient (CLI) | payer OTHER, SELFPAY ==
[2022-02-17 15:20] LABS: Absolute Neutrophil Count 4.7 X10^3/uL (2.0-7.7); Basophil# 0.05 X10^3/uL; Basophil% 0.7 % (0-1); Eosinophil# 0.14 X10^3/uL; Hematocrit 49.1 % (37-47); Hemoglobin 16.5 g/dL (12.0-15.0); Lymphocyte % 24.3 % (19-41); Mean Corp Hgb Conc 33.6 g/dL (32-36); Mean Corpuscular Hgb 30.1 pg (27.0-32.0); Mean Corpuscular Volume 89.4 fL (81-99); Mean Platelet Vol. 10.1 fl (6.2-12.0); Monocyte# 0.37 X10^3/uL; Monocyte% 5.3 % (0-10); NRBC Flagged by Analyzer 0 % (0-5); Neutrophil % 67.3 % (47-70); Platelet Count 266 K/mm3 (150-450); RBC Distribution Width CV 12.8 % (11.6-14.6); Red Blood Count 5.49 M/mm3 (4.2-5.4)
[2022-02-17 16:42] LABS: ALB/GLOB Ratio 1.2 RATIO (0.9-2.4); AST(SGOT) 76 U/L (15-37); Alanine Aminotransfer ALT/SGPT 96 U/L (13-56); Albumin, Serum 4.2 g/dL (3.2-5.0); Alkaline Phosphatase 88 U/L (45-117); Anion Gap 8 (5-15); BUN 10 mg/dL (7-18); BUN/Creat Ratio 12.7 RATIO (10-20); Calcium,Total 9.6 mg/dL (8.5-10.1); Chloride 100 mmol/L (98-107); Creatinine, Serum 0.79 mg/dL (0.55-1.02); EST Glomerular Filtration Rate 80 mL/min (>60); Est Glom Filt Rate - Afr Amer 96 mL/min (>60); Globulin 3.6 g/dL (2.2-4.2); Glucose 101 mg/dL (74-106); Potassium 4.4 mmol/L (3.5-5.1); Protein, Total 7.8 g/dL (6.4-8.2); Sodium Level 137 mmol/L (136-145)
== END | disposition home or self-care (01) ==
LOC: MTLAB 13:55
PROVIDERS: PCP Family Medicine; Referring Provider Internal Medicine Rheumatology; Visit Provider Internal Medicine Rheumatology
DX: M06.4 Inflammatory polyarthropathy (principal); Z79.899 Other long term (current) drug therapy; M79.7 Fibromyalgia; M21.40 Flat foot [pes planus] (acquired), unspecified foot; K76.0 Fatty (change of) liver, not elsewhere classified; I10 Essential (primary) hypertension; I25.10 Atherosclerotic heart disease of native coronary artery without angina pectoris; G43.909 Migraine, unspecified, not intractable, without status migrainosus; H40.9 Unspecified glaucoma; E78.5 Hyperlipidemia, unspecified; Z87.11 Personal history of peptic ulcer disease
CPT/HCPCS: 36415; 80053; 85025

== ENCOUNTER → 2022-10-19 | Outpatient (CLI) | payer OTHER, SELFPAY ==
[2022-10-19 17:31] LABS: Absolute Neutrophil Count 3.4 X10^3/uL (2.0-7.7); Basophil# 0.06 X10^3/uL; Eosinophil# 0.17 X10^3/uL; Hematocrit 48.3 % (37-47); Hemoglobin 16.3 g/dL (12.0-15.0); Lymphocyte % 27.8 % (19-41); Mean Corp Hgb Conc 33.7 g/dL (32-36); Mean Corpuscular Hgb 30.2 pg (27.0-32.0); Mean Corpuscular Volume 89.4 fL (81-99); Mean Platelet Vol. 10.2 fl (6.2-12.0); Monocyte# 0.47 X10^3/uL; Monocyte% 8.2 % (0-10); NRBC Flagged by Analyzer 0 % (0-5); Neutrophil # 3.43 X10^3/uL (2.7-7.7); Neutrophil % 59.7 % (47-70); Platelet Count 236 K/mm3 (150-450); RBC Distribution Width SD 42.2 fl (35.1-43.9); White Blood Count 5.8 K/mm3 (4.4-11.0)
[2022-10-19 18:00] LABS: ALB/GLOB Ratio 1.1 RATIO (0.9-2.4); AST(SGOT) 55 U/L (15-37); Alanine Aminotransfer ALT/SGPT 75 U/L (13-56); Alkaline Phosphatase 97 U/L (45-117); Anion Gap 6 (5-15); BUN 7 mg/dL (7-18); BUN/Creat Ratio 8.5 RATIO (10-20); Calcium,Total 9.7 mg/dL (8.5-10.1); Chloride 106 mmol/L (98-107); Creatinine, Serum 0.82 mg/dL (0.55-1.02); EST Glomerular Filtration Rate 75 mL/min (>60); Est Glom Filt Rate - Afr Amer 91 mL/min (>60); Globulin 3.7 g/dL (2.2-4.2); Glucose 105 mg/dL (74-106); Protein, Total 7.7 g/dL (6.4-8.2); Sodium Level 139 mmol/L (136-145)
== END | disposition home or self-care (01) ==
LOC: MTLAB 15:28
PROVIDERS: Referring Provider Internal Medicine Rheumatology; Visit Provider Internal Medicine Rheumatology
DX: M06.4 Inflammatory polyarthropathy (principal); Z79.899 Other long term (current) drug therapy; M79.7 Fibromyalgia; M21.40 Flat foot [pes planus] (acquired), unspecified foot; K76.0 Fatty (change of) liver, not elsewhere classified; I10 Essential (primary) hypertension; I25.10 Atherosclerotic heart disease of native coronary artery without angina pectoris; G43.909 Migraine, unspecified, not intractable, without status migrainosus; H40.9 Unspecified glaucoma; E78.5 Hyperlipidemia, unspecified; Z87.11 Personal history of peptic ulcer disease
CPT/HCPCS: 36415; 80053; 85025

== ENCOUNTER → 2023-04-26 | Outpatient (CLI) | payer OTHER, SELFPAY ==
--- OUTSIDE RECORDS SUMMARY | 2023-04-26 13:32 | XMS RPT_ITS | CCD ---
Author Name Unknown Address [address] [place] [address] Organization [facility] Care Team Providers Care Banquet Houseperson Name Role Phone Andrea Frey Unavailable Unavailable Edna Villagomez Unavailable Unavailable PROVIDER, UNKNOWN Unavailable Unavailable Teo Wright Unavailable Unavailable Edna Villagomez Unavailable Unavailable PROVIDER, UNKNOWN Unavailable Unavailable Edna Villagomez Unavailable Unavailable PROVIDER, UNKNOWN Unavailable Unavailable RICHY BAY Unavailable Unavailable DRAKE STARKEY Referring Unavailabl e DRAKE STARKEY Referring Unavailabl NATHAN Davis Referring Unavailabl e Edna Villagomez Primary Care Provider Edna Villagomez MD Primary Care Provider Allergies Allergy Classification Reported Allergen(s) Allergy Type Date of Onset Reaction(s) Facility (1 source) levoFLOXacin; Translations: [LEVOFLOXACIN] Drug Allergy 4 [facility] Rep[facility] (1 source) Sulfonamides (Antibiotic); Translations: [SULFA (SULFONAMIDE ANTIBIOTICS)] Propensity to adverse reactions to drug (disorder) 1 [facility] Repository (1 source) Azithromycin Drug Allergy 7 [place], [place] (1 source) Doxycycline Drug Allergy 8 Other (See Comments) [place], [place] (1 source) levoFLOXacin Drug Allergy 6 [place], [place] (1 source) Sulfonamides (Antibiotic) Propensity to adverse reactions to drug 6 [place] (1 source) SUMAtriptan Drug Allergy 6 [place] (1 source) Amoxicillin-Pot Clavulanate Propensity to adverse reactions to drug 7 Diarrhea [facility]- [place], [place] Medications Current Medications Medication Drug Class(es) Dates Sig (Normalized) Sig (Original) 200 actuat albuterol 0.09 mg/actuat dry powder inhaler (1 source) beta2-Adrenergic Agonist Start: 12-29-19 18 take 2 puff(s) by inhalation every six hours as needed for wheezing albuterol sulfate (PROAIR RESPICLICK) 108 (90 Base) MCG/ACT aerosol powder inhalation Inhale 2 puffs into the lungs every 6 hours as needed for Wheezing or Shortness of Breath 1 Inhaler 11 12/28/2017 Active aspirin 81 mg oral tablet (1 source) Platelet Aggregation Inhibitor, Nonsteroidal Anti-inflammatory Drug take 1 tablet by mouth once daily aspirin 81 MG tablet Indications: 2 tabs daily Take 81 mg by mouth daily 0 Active bimatoprost 0.1 mg/ml ophthalmic solution (1 source) Prostaglandin Analog Start: 03-09-20 17 take 1 drop(s) into the eye(s) once daily at bedtime bimatoprost (LUMIGAN) 0.01 % SOLN ophthalmic drops Use 1 Drop in both eyes daily at bedtime. 0 03/09/2017 Active Cholecalciferol (1 source) Vitamin D Cholecalciferol (VITAMIN D-3 PO) Take by mouth daily 0 Active DULoxetine 60 mg delayed release oral capsule (1 source) Serotonin and Norepinephrine Reuptake Inhibitor Start: 09-13-19 19 DULoxetine (CYMBALTA) 60 MG extended release capsule fluticasone propionate 0.05 mg/actuat metered dose nasal spray (1 source) Corticosteroid Start: 09-04-19 19 take 1 spray(s) nasal route twice daily fluticasone (FLONASE) 50 MCG/ACT nasal spray Indications: Acute bacterial sinusitis 1 spray by Each Nostril route 2 times daily 1 Bottle 1 09/03/2018 Active 14 actuat fluticasone furoate 0.1 mg/actuat / vilanterol 0.025 mg/actuat dry powder inhaler (1 source) Corticosteroid, beta2-Adrenergic Agonist Start: 03-30-20 17 take 1 puff(s) by inhalation once daily fluticasone-vilanterol (BREO ELLIPTA) 100-25 MCG/INH AEPB inhaler Inhale 1 puff into the lungs daily 2 each 0 03/30/2017 Active hydroCHLOROthiazide 25 mg oral tablet (2 sources) Thiazide Diuretic Start: 08-15-19 take 1 tablet by mouth once daily hydroCHLOROthiazide (HYDRODiuril) 25 MG tablet TAKE ONE TABLET BY MOUTH EVERY DAY 90 tablet 3 08/14/2022 Active Problems Active Problems Problem Classification Problem Date Documented Date Episodic/Chronic Asthma (2 sources) Uncomplicated moderate persistent asthma; Translations: [Moderate persistent asthma, uncomplicated] Onset: 05-13-2017 05-13-2017 Chronic Coronary atherosclerosis and other heart disease (3 sources) Atherosclerotic heart disease of [place] coronary artery without angina pectoris; Translations: [Coronary arteriosclerosis] Onset: 05-02-2015 05-02-2015 Chronic Disorders of lipid metabolism (2 sources) Hyperlipidemia; Translations: [Hyperlipidemia, unspecified] Onset: 05-02-2015 05-02-2015 Chronic Disorders of lipid metabolism (1 source) Pure hypercholesterolemia, unspecified; Translations: [Pure hypercholesterolemia, unspecified] Onset: 05-30-2013 Essential hypertension (3 sources) Essential (primary) hypertension; Translations: [Hypertensive disorder] Onset: 05-02-2015 05-02-2015 Chronic Glaucoma (2 sources) Glaucoma; Translations: [Unspecified glaucoma] Onset: 05-18-2016 05-18-2016 Chronic Headache; including migraine (1 source) Migraine; Translations: [Migraine, unspecified, not intractable, without status migrainosus] Onset: 07-14-2021 01-19-2022 Chronic Hemorrhoids (1 source) Hemorrhoids; Translations: [Unspecified hemorrhoids] 11-20-2022 Episodic Nutritional deficiencies (2 sources) Vitamin D deficiency; Translations: [Vitamin D deficiency, unspecified] Onset: 05-02-2015 05-02-2015 Chronic Residual codes; unclassified (1 source) Obstructive sleep apnea syndrome; Translations: [Obstructive sleep apnea (adult) (pediatric)] Onset: 07-14-2021 01-19-2022 Chronic Rheumatoid arthritis and related disease (2 sources) Inflammatory polyarthropathy; Translations: [Inflammatory polyarthropathy] Onset: 07-04-2018 01-19-2022 Chronic Unclassified (2 sources) Obstructive sleep apnea (adult) (pediatric); Translations: [Obstructive sleep apnea (adult) (pediatric)] Onset: 06-02-2017 Chronic Unclassified (1 source) Patient encounter status; Translations: [Breast cancer screening] Past or Other Problems Problem Classification Problem Date Documented Da te Episodic/Chronic Nonspecific chest pain (1 source) Chest pain, unspecified; Translations: [Chest pain, unspecified] Onset: 08-31-2017 Episodic Other lower respiratory disease (2 sources) Cough; Translations: [Cough] Onset: 11-09-2016 Episodic Other skin disorders (2 sources) Hirsutism; Translations: [Hirsutism] Onset: 12-31-2010 05-18-2016 Episodic Results Test Name Value Interpretation Reference Range Facil ity Encounters Encounter Date Encounter Type Care Provider Facility Start: 11-19-2022 Telephone encounter Edna marc MD Work Phone: [facility] Family Medicine Procedures Date Procedure Procedure Detail Performing Clinician Start: 02-24-2019 Screening digital br [place] tomos[place] bi Edna Villagomez Work Phone: Start: 02-24-2019 Mammography Edna garcia MD Work Phone: Plan of Treatment Date Care Activity Detail Author Start: 07-04-2023 DTaP/Tdap/Td vaccine (2 - Td) DTaP/Tdap/Td vaccine (2 - Td) [place] Start: 07-04-2023 DTaP/Tdap/Td Vaccine s (2 - Td or Tdap) DTaP/Tdap/Td Vaccines (2 - Td or Tdap) [facility] Start: 12-04-2022 Influenza vaccination Influenza Vacc ine (#1) [facility] Start: 02-25-2020 Screening for malign ant neoplasm of breast Mammogram [facility] Start: 12-31-2019 Creatinine monitoring Creatinine mon itoring [place], [place] Start: 12-31-2019 Lipid screen Lipid screen [place], [place] Start: 12-31-2019 Potassium monitoring Potassium monit [place]ing [place] Start: 12-04-2018 Influenza vaccination Flu vaccine (# 1) [place] Start: 2012 Breast cancer screen Breast cancer s creen [place] Start: 2012 Colon cancer screen colonoscopy Colon cancer screen colonoscopy [place] Start: 2012 Shingles Vaccine (1 of 2) Shingles V accine (1 of 2) [place] Start: 2012 Zoster Vaccines (1 of 2) Zoster Vacc tate (1 of 2) [facility] Start: 2002 Diabetes screen Diabetes screen [place], [place] Start: 1992 Screening for malign ant neoplasm of cervix [facility] Start: 10-31-1983 Cervical cancer screen Cervical canc er screen [place], [place] Start: 10-31-1983 Screening for malign ant neoplasm of cervix Pap Smear [facility] Start: 1980 Diabetes mellitus screening Diabetes Screening [facility] Start: 1980 Hepatitis C screening Hepatitis C Sc reening [facility] Start: 1977 HIV screen HIV screen [place], [place] Start: 1974 Depression Screening Depression Scre ening [facility] Start: 1968 Pneumococcal 0-64 ye ars Vaccine (1 of 1 - PPSV23) Pneumococcal 0-64 years Vaccine (1 of 1 - PPSV23) [place], [place] Start: 1968 Pneumococcal Vaccine : Pediatrics (0 to 5 Years) and At-Risk Patients (6 to 64 Years) (1 - PCV) Pneumococcal Vaccine: Pediatrics (0 to 5 Years) and At-Risk Patients (6 to 64 Years) (1 - PCV) [facility] Start: 10-31-1963 MMR Vaccines (1 of 1 - Standard series) MMR Vaccines (1 of 1 - Standard series) [facility] Start: 05-02-1963 COVID-19 Vaccine (#1) COVID-19 Vacci ne (#1) [facility] Start: 1962 Hepatitis C screen Hepatitis C scree n [place], [place] Start: 1962 HIV screening HIV Screening [facility] Start: 1962 Lipid panel Lipid Panel [facility] Start: 1962 Screening for malign ant neoplasm of colon [facility] Immunizations Immunization Date Immunization Notes Care Provider Varun guillen 07-03-2013 tetanus toxoid, redu rusty diphtheria toxoid, and acellular pertussis vaccine, adsorbed Edna Villagomez [facility] Payers Date Payer Category Payer Private Health Insurance MELBA RAYA xxxxxxxxxxx 2018-Present [phone] [address] [place] [address] xxxxxxxxxxx [id number] 2018 Private Health Insurance MELBA RAYA [id number] 2018-Present [address] [place] [address] Commercial [id number] Unknown Social History Date Type Detail Facility Start: 01-02-2019 Tobacco smoking stat [facility] Never smoker [facility] Start: 01-02-2019 End: 07-14-2021 Alcohol intake Lifetime non-drinker (finding) [place] Start: 12-20-2018 History SDOH Alcohol Frequency 1 [place] Start: 12-20-2018 History SDOH Financial 5 [place] Start: 12-20-2018 History SDOH Transpo rt Med 2 [place] Start: 1960 Sex Assigned At Not on file [place] Start: 07-14-2021 Alcohol intake [facility] Start: 07-14-2021 Tobacco use panel [facility] Telephone encounter Note 11-20-2022 Telephone Encounter - Loyda Camarena MA - 11/20/2022 8:15 AM EDT Note Date & Type Note Facility 11-20-2022 Telephone encounter Note Form atting of this note might be different from the original. This isn't on her current or old list [facility] Note 11-20-2022 Telephone Encounter - Loyda Camarena MA - 11/20/2022 8:15 AM EDTTelephone Encounter - Elena Blank - 11/19/2022 4:02 PM EDT Note Date & Type Note Facility 11-20-2022 Miscellaneous Notes Formattin g of this note might be different from the original. This isn't on her current or old list Name of caller: Cori Zhang Contact phone number: [phone] Relationship to Patient: patient Provider: Dr. Villagomez Practice: [facility] Chief Complaint/Reason for Call: Pt requesting a New Rx for Hemorrhoid cream to be sent to Pharmacy on file. Please advise, thank you. Best time of day caller can be reached: Any Patient advised that office/PCP has 24-48 business hours to return their call: Yes documented in this encounter [facility] Telephone encounter Note 11-19-2022 Telephone Encounter - Elena Blank - 11/19/2022 4:02 PM EDT Note Date & Type Note Facility 11-19-2022 Telephone encounter Note Form atting of this note might be different from the original. Name of caller: Cori Mancillabindurose Contact phone number: [phone] Relationship to Patient: patient Provider: Dr. Villagomez Practice: [facility] Chief Complaint/Reason for Call: Pt requesting a New Rx for Hemorrhoid cream to be sent to Pharmacy on file. Please advise, thank you. Best time of day caller can be reached: Any Patient advised that office/PCP has 24-48 business hours to return their call: Yes [facility] Evaluation note Note Date & Type Note Facility [facility] Summary Purpose Family History No Family History Records FoundNo Family History Records FoundNo Family History Records FoundNo Family History Records FoundNo Family History Records FoundNo Family History Records FoundNo Family History Records Found Advance Directives No Advanced Directives Records FoundDocuments on File Type Date Recorded Patient Tailer Out Expl anation Advance Directives and Living Will Power of Flute Teacher Assessments Diagnosis Breast cancer screening Breast screening, unspecified Additional Source Comments INFORMATION SOURCE (unrecogn ized section and content) DATE CREATED AUTHOR AUTHOR'S ORGANIZ ATION 12/06/2017 [employer] DATE CREATED AUTHOR AUTHOR'S ORGANIZ ATION 07/07/2018 [facility] DATE CREATED AUTHOR AUTHOR'S ORGANIZ ATION 09/11/2018 [facility] DATE CREATED AUTHOR AUTHOR'S ORGANIZ ATION 03/10/2019 [facility] DATE CREATED AUTHOR AUTHOR'S ORGANIZ ATION 06/08/2019 [facility] DATE CREATED AUTHOR AUTHOR'S ORGANIZ ATION 11/21/2022 [facility] Kaminario s tem [facility] Reason for Visit (unrecogniz ed section and content) Care Teams (unrecognized sec tion and content) FOR RECORDS PERTAINING TO PATIENTS WHO ARE OR HAVE BEEN ENROLLED IN A CHEMICAL DEPENDENCY/SUBSTANCEABUSE PROGRAM, SOME INFORMATION MAY BE OMITTED. This clinical summary was aggregated from multiple sources. Caution should be exercised in using it in the provision of clinical care. This summary normalizes information from multiple sources, and as a consequence, information in this document may materially change the coding, format and clinical context of patient data. In addition, data may be omitted in some cases. CLINICAL DECISIONS SHOULD BE BASED ON THE PRIMARY CLINICAL RECORDS. [facility] [facility]. provides no warranty or guarantee of the accuracy or completeness of information in this document.
[2023-04-26 16:08] LABS: ALB/GLOB Ratio 1.1 RATIO (0.9-2.4); AST(SGOT) 51 U/L (15-37); Alanine Aminotransfer ALT/SGPT 66 U/L (13-56); Alkaline Phosphatase 93 U/L (45-117); Anion Gap 5 (5-15); BUN 12 mg/dL (7-18); BUN/Creat Ratio 14.3 RATIO (10-20); Calcium,Total 9.9 mg/dL (8.5-10.1); Chloride 104 mmol/L (98-107); Creatinine, Serum 0.84 mg/dL (0.55-1.02); EST Glomerular Filtration Rate 74 mL/min (>60); Est Glom Filt Rate - Afr Amer 89 mL/min (>60); Globulin 3.6 g/dL (2.2-4.2); Glucose 115 mg/dL (74-106); Protein, Total 7.6 g/dL (6.4-8.2); Sodium Level 138 mmol/L (136-145)
[2023-04-26 16:20] LABS: Absolute Lymphocyte Count 1.59 X10^3/uL (0.83-4.51); Absolute Neutrophil Count 3.8 X10^3/uL (2.0-7.7); Basophil# 0.06 X10^3/uL; Eosinophil# 0.16 X10^3/uL; Eosinophils% 2.6 % (0-5); Hematocrit 50.3 % (37-47); Hemoglobin 16.9 g/dL (12.0-15.0); Lymphocyte # 1.59 X10^3/ul (0.83-4.51); Lymphocyte % 25.9 % (19-41); Mean Corp Hgb Conc 33.6 g/dL (32-36); Mean Corpuscular Hgb 29.9 pg (27.0-32.0); Mean Platelet Vol. 10.4 fl (6.2-12.0); Monocyte# 0.51 X10^3/uL; Monocyte% 8.3 % (0-10); NRBC Flagged by Analyzer 0 % (0-5); Neutrophil % 61.9 % (47-70); Platelet Count 235 K/mm3 (150-450); RBC Distribution Width CV 13.1 % (11.6-14.6); RBC Distribution Width SD 42.5 fl (35.1-43.9); Red Blood Count 5.65 M/mm3 (4.2-5.4); White Blood Count 6.1 K/mm3 (4.4-11.0)
== END | disposition home or self-care (01) ==
LOC: MTLAB 13:12
PROVIDERS: PCP Family Medicine; Referring Provider Internal Medicine Rheumatology; Visit Provider Internal Medicine Rheumatology
DX: M06.4 Inflammatory polyarthropathy (principal); Z79.899 Other long term (current) drug therapy; M79.7 Fibromyalgia; M21.40 Flat foot [pes planus] (acquired), unspecified foot; K76.0 Fatty (change of) liver, not elsewhere classified; I10 Essential (primary) hypertension; I25.10 Atherosclerotic heart disease of native coronary artery without angina pectoris; G43.909 Migraine, unspecified, not intractable, without status migrainosus; H40.9 Unspecified glaucoma; E78.5 Hyperlipidemia, unspecified; Z87.11 Personal history of peptic ulcer disease
CPT/HCPCS: 36415; 80053; 85025

== ENCOUNTER → 2024-05-03 | Outpatient (CLI) | payer OTHER, SELFPAY ==
[2024-05-03 18:04] LABS: Absolute Lymphocyte Count 1.76 X10^3/uL (0.83-4.51); Absolute Neutrophil Count 3.6 X10^3/uL (2.0-7.7); Basophil# 0.05 X10^3/uL; Basophil% 0.8 % (0-1); Eosinophil# 0.19 X10^3/uL; Eosinophils% 3.2 % (0-5); Hematocrit 47.1 % (37-47); Hemoglobin 15.8 g/dL (12.0-15.0); Lymphocyte # 1.76 X10^3/ul (0.83-4.51); Lymphocyte % 29.3 % (19-41); Mean Corp Hgb Conc 33.5 g/dL (32-36); Mean Corpuscular Hgb 29.6 pg (27.0-32.0); Mean Corpuscular Volume 88.2 fL (81-99); Mean Platelet Vol. 10.5 fl (6.2-12.0); Monocyte# 0.38 X10^3/uL; Monocyte% 6.3 % (0-10); NRBC Flagged by Analyzer 0 % (0-5); Neutrophil % 60.1 % (47-70); Platelet Count 228 K/mm3 (150-450); RBC Distribution Width CV 13.2 % (11.6-14.6); Red Blood Count 5.34 M/mm3 (4.2-5.4)
[2024-05-03 19:34] LABS: ALB/GLOB Ratio 1.2 RATIO (0.9-2.4); AST(SGOT) 36 U/L (15-37); Alanine Aminotransfer ALT/SGPT 52 U/L (13-56); Albumin, Serum 4.2 g/dL (3.2-5.0); Alkaline Phosphatase 101 U/L (45-117); Anion Gap 5 (5-15); BUN 7 mg/dL (7-18); BUN/Creat Ratio 10.2 RATIO (10-20); Calcium,Total 9.9 mg/dL (8.5-10.1); Chloride 108 mmol/L (98-107); Creatinine, Serum 0.68 mg/dL (0.55-1.02); EST Glomerular Filtration Rate 93 mL/min (>60); Est Glom Filt Rate - Afr Amer 112 mL/min (>60); Globulin 3.4 g/dL (2.2-4.2); Glucose 88 mg/dL (74-106); Potassium 4.9 mmol/L (3.5-5.1); Protein, Total 7.6 g/dL (6.4-8.2); Sodium Level 139 mmol/L (136-145)
== END | disposition home or self-care (01) ==
LOC: MTLAB 15:46
PROVIDERS: PCP Family Medicine; Referring Provider Internal Medicine Rheumatology; Visit Provider Internal Medicine Rheumatology
DX: M06.4 Inflammatory polyarthropathy (principal); Z79.899 Other long term (current) drug therapy; M79.7 Fibromyalgia
CPT/HCPCS: 36415; 80053; 85025